=== PATIENT | female | born 1985 | race Asian ===

== ENCOUNTER 2020-12-01 03:24 | Emergency (ER) | payer OTHER ==
[~2020-12-01] VITALS: Ht 160 cm; Wt 70.5 kg
[2020-12-01] MEDS ORDERED: LAMO100 PO (03:46)
[2020-12-01] MEDS ORDERED: ESZO3 PO (03:46)
[2020-12-01] MEDS ORDERED: TAPE200T PO (03:46)
[2020-12-01] MEDS ORDERED: GABA-1181 PO (03:46)
[2020-12-01] MEDS ORDERED: PRAZ2 PO (03:46)
[2020-12-01 04:56] LABS: COVID AG,FIA SOURCE NASOPHARYNGEAL
[2020-12-01 05:31] LABS: INFLUENZA TYPE A NEGATIVE FOR TYPE A (NEGATIVE); INFLUENZA TYPE B NEGATIVE FOR TYPE B (NEGATIVE)
[2020-12-01 06:28] VITALS: BP 110/65
== END 2020-12-01 06:30 | disposition home or self-care (01) ==
LOC: EMS 03:26
DX: R05 Cough (principal); Z20.822 Contact with and (suspected) exposure to COVID-19; Z88.0 Allergy status to penicillin
CPT/HCPCS: 87426; 87804; 99283; U0003